=== PATIENT | male | born 1980 | race Caucasian/White ===

== ENCOUNTER 2021-02-21 10:34 | Emergency (ER) | payer SELFPAY ==
[~2021-02-21] VITALS: Ht 180.3 cm; Wt 117.9 kg
[2021-02-21 11:15] LABS: HEMOGLOBIN 15.7 gm/dl (14.0-17.5); RED BLOOD COUNT 5.18 M/UL (4.20-5.50); WHITE BLOOD COUNT 5.4 K/UL (4.5-11.0)
[2021-02-21 11:44] LABS: BUN/CREATININE RATIO 9 (0-10)
== END 2021-02-21 13:30 | disposition home or self-care (01) ==
LOC: ER1 10:34
PROVIDERS: Physician Assistant
DX: Z23 Encounter for immunization (principal); U07.1 COVID-19; I10 Essential (primary) hypertension; K21.9 Gastro-esophageal reflux disease without esophagitis; Z90.49 Acquired absence of other specified parts of digestive tract; Z87.442 Personal history of urinary calculi
CPT/HCPCS: 71045; 80053; 82550; 82553; 83874; 84484; 85025; 99285; M0243